=== PATIENT | male | born 1960 | race Caucasian/White ===

== ENCOUNTER 2019-07-26 15:03 | Emergency (ER) | payer OTHER, BC ==
--- NOTE | 2019-07-26 15:13 | PDOC ---
History of Present Illness - General Chief Complaint: Pain, Acute Stated Complaint: LEFT RIB PAIN Time Seen by Provider: 07/26/19 15:12 - History of Present Illness Initial Comments: 07/26/19 15:13 HPI: Patient denies fever, chills, night sweats, HUSAIN, vision change, chest pain, palpitations, SOB, cough, leg swelling, abdominal pain, nausea, vomiting, diarrhea, constipation, dysuria, hematuria, BPR, lightheadedness, weakness, sensory changes. PMHx: as noted above ROS: as noted SHx: Denies tobacco use; no alcohol use; no rec drugs Allergies: NKDA ROS: GENERAL/CONSTITUTIONAL: No fever or chills. No weakness. HEAD, EYES, EARS, NOSE AND THROAT: No change in vision. No ear pain or discharge. No sore throat. CARDIOVASCULAR: No chest pain or shortness of breath RESPIRATORY: No cough, wheezing, or hemoptysis. GASTROINTESTINAL: No nausea, vomiting, diarrhea or constipation. GENITOURINARY: No dysuria, frequency, or change in urination. MUSCULOSKELETAL: No joint or muscle swelling or pain. No neck or back pain. SKIN: No rash NEUROLOGIC: No headache, vertigo, loss of consciousness, or change in strength/ sensation. ENDOCRINE: No increased thirst. No abnormal weight change HEMATOLOGIC/LYMPHATIC: No anemia, easy bleeding, or history of blood clots. ALLERGIC/IMMUNOLOGIC: No hives or skin allergy. PE: GENERAL: Awake, alert, and fully oriented, no acute distress HEAD: No signs of trauma, normocephalic, atraumatic EYES: EOMI, sclera anicteric, conjunctiva clear ENT: Auricles normal inspection, hearing grossly normal, nares patent, oropharynx clear without exudates. Moist mucosa NECK: Normal ROM, no lymphadenopathy LUNGS: No increased work of breathing, symmetrical chest rise, clear to auscultation bilaterally, no wheezes, crackles or rhonchi HEART: Regular rate and rhythm, normal S1 and S2, no murmurs, peripheral pulses 2+ and equal bilaterally. ABDOMEN: Soft, nondistended, nontender, normoactive bowel sounds. No guarding, no rebound. No masses. No CVAT MUSCULOSKELETAL: Normal inspection, FROM NEUROLOGICAL: Cranial nerves II through XII grossly intact. Normal speech, normal gait, no focal sensorimotor deficits SKIN: Warm, Dry, normal turgor, no rashes or lesions noted Past History - Past Medical History Allergies/Adverse Reactions: Allergies Allergy/AdvReac Type Severity Reaction Status Date / Time No Known Allergies Allergy Verified 07/26/19 15:04 Home Medications: Ambulatory Orders NK [No Known Home Medication] 07/26/19 COPD: No - Psycho Social/Smoking Cessation Hx Smoking History: Never smoked Hx Alcohol Use: Yes (OCASIONAL) Drug/Substance Use Hx: No *Physical Exam - Vital Signs Last Vital Signs Temp Pulse Resp BP Pulse Ox 0/0 L 07/26/19 15:04 Discharge - Discharge Information Condition: Stable - Follow up/Referral Referrals: Lorna Bravo [Primary Care Provider] - - Patient Discharge Instructions - Post Discharge Activity
[2019-07-26] MEDS ORDERED: IBUPROFEN 400 MG TABLET (FP) PO ONE (15:21)
[2019-07-26 15:26] VITALS: BMI 22.4
[2019-07-26] MEDS ORDERED: IBUPROFEN 600 MG TABLET (FP) PO ONE (15:38)
--- NOTE | 2019-07-26 15:45 | PDOC ---
History of Present Illness - General Chief Complaint: Pain, Acute Stated Complaint: LEFT RIB PAIN Time Seen by Provider: 07/26/19 15:12 History Source: Patient Exam Limitations: No Limitations - History of Present Illness Initial Comments: 07/26/19 15:22 59y F hx of psoriasis presents with L chest pain s/p slip and fall this morning. Pt states he slipped and fell on ice this morning, landing on his left chest. he was able to sligthly break his fal with his R hand but the brunt of the force was taken by his L chest. pt denies any head injury, n/v, neck pain, back pain, palpitations, lightheadedness, abd pain, castillo. pt notse the pain is exacerbated by movement and deep breaths. Pt denies any numbness/tingling/ weakness, cough, hemoptysis. No syncope or syncope prodrome prior to fall. ROS Constitutional - no reported Fever, Chills, HEENT: no reported vision changes, sore throat Respiratory: no reported cough, sob, hemoptysis Cardiac: +Left chest pain no reported, palpitations, light headedness, leg swelling Abd/GI: no reported abd pain, nausea, vomiting, blood per rectum, melena, diarrhea : no reported dysuria, frequency, discharge Musculskelatal - no reported back pain, joint swelling skin - no reported bruising, erythema, rash neurological: no reported headache, numbness, focal weakness, tingling, ataxia, hematologic: no reported easy bruising, easy bleeding exam: GENERAL: The patient is awake, alert, and fully oriented, Nontoxic - in no acute distress. HEAD: Normocephalic, atraumatic. EYES: extraocular movements intact, sclera anicteric, conjunctiva clear. ENT: Normal voice, Moist mucous membranes. NECK: Normal range of motion, supple CHEST/LUNGS: Breath sounds equal, clear to auscultation bilaterally. No wheezes , no rhonchi, no rales. mild tenderness noted to the left anterior chest HEART: Regular rate and rhythm, normal S1 and S2 without murmur, rub or gallop. ABDOMEN: Soft, nontender, No guarding, no rebound. No CVA tenderness EXTREMITIES: Normal range of motion, no edema. NEUROLOGICAL: No facial assymetry, Normal speech, PSYCH: Normal mood, normal affect. SKIN: Warm, Dry, normal turgor, Suspect contusion versus fracture X-ray was obtained noted for fifth rib fracture on one view no sign of ptx will dc pt with ibuprofen and tramadol as needed for breathtrough pain Past History - Past Medical History Allergies/Adverse Reactions: Allergies Allergy/AdvReac Type Severity Reaction Status Date / Time No Known Allergies Allergy Verified 07/26/19 15:04 Home Medications: Ambulatory Orders NK [No Known Home Medication] 07/26/19 COPD: No - Psycho Social/Smoking Cessation Hx Smoking History: Never smoked Hx Alcohol Use: Yes (OCASIONAL) Drug/Substance Use Hx: No *Physical Exam - Vital Signs Last Vital Signs Temp Pulse Resp BP Pulse Ox 0/0 L 07/26/19 15:04 Discharge - Discharge Information Problems reviewed: Yes Clinical Impression/Diagnosis: Closed rib fracture Qualifiers: Encounter type: initial encounter Rib fracture type: single rib Laterality: left Qualified Code(s): S22.32XA - Fracture of one rib, left side, initial encounter for closed fracture Condition: Stable Disposition: HOME - Admission No - Follow up/Referral Referrals: Lorna Bravo [Primary Care Provider] - - Patient Discharge Instructions Patient Printed Discharge Instructions: DI for Rib Fracture Additional Instructions: Return to the emergency department immediately with ANY new, persistent or worsening symptoms. Take ibuprofen (400mg every 6 hours) or Tylenol (650mg every 6 hours) as needed for your pain. If you have worsening pain you may take a tramadol however if you take tramadol do not drive. You MUST call and follow up with your doctor tomorrow for further evaluation of your symptoms. Results were discussed with you. Please make sure your doctor reviews the results of your emergency evaluation. Your Emergency Department visit is not complete without a follow up with your doctor. If you had any xrays during your visit, it was read preliminarily by myself, a Radiologist will review it and if there are any additional findings we will call you. Print Language: ITALIAN - Post Discharge Activity
[2019-07-26 15:57] VITALS: BP 128/86; PULSE 74; TEMP 97.5
== END 2019-07-26 16:22 | disposition home or self-care (01) ==
LOC: FER 15:03
DX: S22.32XA Fracture of one rib, left side, initial encounter for closed fracture (principal); W00.0XXA Fall on same level due to ice and snow, initial encounter; Y93.89 Activity, other specified; Y92.410 Unspecified street and highway as the place of occurrence of the external cause
CPT/HCPCS: 71101-TC-LT-FY; 99282-25